=== PATIENT | female | born 1955 | race Caucasian/White ===

== ENCOUNTER 2025-06-02 13:32 | Observation (INO) ==
--- NOTE | 2025-06-02 13:56 | XRay Report ---
XR chest 1V portable CLINICAL HISTORY: Chest pain, nonspecific COMPARISON STUDY: None FINDINGS: There is mild cardiomegaly without pulmonary vascular congestion. No consolidation or pleur al effusion. No pneumothorax. IMPRESSION: No acute findings. ACT 112: Negative or not required by law. Electronically signed by: Franck Waldrop M.D. 06/02/2025 1:55 PM
[2025-06-02 14:15] LABS: Hematocrit (blood only) 33.2 % (37.0-47.0); Hemoglobin 11.1 g/dl (12.0-16.0); Immature Granulocytes # (auto) 0.02 K/uL (0.01-0.20); Immature Granulocytes % (auto) 0.2 %; Mean Corpuscular Hemoglobin 34.2 pg (25.0-34.0); Mean Corpuscular Volume 102.2 fL (80.0-100.0); Platelet Count 310 K/uL (130-400); RDW Standard Deviation 50.0 fL (36.4-46.3); Red Blood Count 3.25 M/uL (4.20-5.40); White Blood Count 10.73 K/ul (4.8-10.8)
--- NOTE | 2025-06-02 14:34 | Emergency Department Note ---
Impression & Plan Chest pain, Gastritis ED Provider Note Provider: Bull Mccurdy MD CHIEF COMPLAINT: Chest discomfort to back HISTORY OF PRESENT ILLNESS: Patient is a 69-year-old female presenting here today from the [facility] via ambulance. Patient states over the last 3 weeks or so she is been having some lower to mid chest discomfort radiating from the back around her ribs. Had x-rays and blood work in the outpatient setting through her doctors in [place] where she is from. No significant findings other than a mildly low hemoglobin of 11. Was at [facility] and reports while walking to be and experience a pounding heart but not fast heart rate. Did not syncopized but felt weak. Seen at [facility] and sent here for further evaluations. Had significant chest discomfort improved with 2 sprays of nitro. Minimal 1 out of 10 pain currently. Some mild headache also reported. No falls. No abdominal pain reported but she is tender in the right upper abdomen. PAST MEDICAL HISTORY: As noted above MEDICATIONS: Reviewed home medications SOCIAL HISTORY: , non-smoker PHYSICAL EXAM: GENERAL: alert and oriented in no acute distress on stretcher Head: normocephalic and atraumatic EYES: No injection, discharge or icterus. NECK: Trachea midline. ENT: Mucous membranes pink and moist. LUNGS: Airway patent. No retractions. Breath sounds clear with good air entry bilaterally. HEART: Regular rate and rhythm. No chest wall tenderness ABDOMEN: Soft mild right upper quadrant tenderness SKIN: Acyanotic, warm, dry, without rashes EXTREMITIES: Without swelling, tenderness or deformity NEUROLOGICAL: No focal deficits. No aphasia. No facial droop or slurred speech. Ambulatory. EK bpm normal sinus rhythm. No PVC or PAC. No acute ST segment elevation or depression with a QTc of 455. CONTINUOUS CARDIAC MONITORING: was ordered and showed a heart rate of 60s to 80s bpm in normal sinus rhythm Patient's laboratory studies and imaging reviewed. Differential includes Cardiac ischemia, aortic dissection, pulmonary embolism, pneumothorax, pneumonia, pericarditis, myocarditis, esophageal rupture, GERD, cholecystitis, pancreatitis, musculoskeletal, as well as other pathologies. IMPRESSION/MEDICAL DECISION MAKING: Patient with minimal pain on evaluation. EKG without STEMI. Did recently travel and thus will complete CT scans include underlying PE or mass although checks x-ray is reassuring per radiology report. Some tenderness in the mid right upper quadrant. Will complete abdominal CT with this. Could possibly be a smoldering cholecystitis situation. Also question again underlying angina/cardiac issue. No significant leukocytosis or severe anemia today. No trauma or neurological deficits and do not believe this is spinal pathology. Chemistries here without significant electrolyte abnormality or signs of renal dysfunction. No transaminitis or evidence of hepatitis or pancreatitis is noted. Troponin is normal at 5.2. Patient with complaint of some headache after the nitroglycerin and given Toradol and Reglan here to help with this per her request. CTA of the chest per radiology report without evidence of PE. They question a small right lower lobe area of pneumonitis. CT abdomen pelvis per radiology questions possibly some gastritis and gas as well as again some right lower lobe opacity. Discussed with the patient the findings. Patient does take meloxicam and is recently on a course of prednisone. Has been taking Pepcid but will add a PPI. Discussed with her options of staying for further cardiac evaluation exclusion versus outpatient follow-up. Certainly her discomfort this afternoon is concerning even with a negative initial troponin here. In shared decision making discussing risk benefits with her and her . She does not have close established follow-up as she is waiting an outpatient Lyme screen. Patient reports she is feeling improvement of her chest and rib region at this point. After discussion and in shared decision making we will bring in for observation to ensure continued improvement as well as trending of troponins. Will give a dose of Protonix. DIAGNOSIS: Chest pain, gastritis DISPOSITION: Hospitalist will evaluate Patient was agreeable with this plan. Past Med/Surg History Problem List (Updated 06/02/25 @ 17:12 by Bull Mccurdy M.D.) Gastritis (Acute) Chest pain (Acute) Social History Smoking Status: Never smoker Preferred Language: Hebrew Feels Safe at Home: Yes Home Meds Home Medications Medication Instructions Recorded Confirmed amitriptyline 50 mg tablet 50 mg PO HS 06/02/25 06/02/25 citalopram 40 mg tablet 40 mg PO DAILY 06/02/25 06/02/25 famotidine 20 mg tablet 20 mg PO DAILYBB 06/02/25 06/02/25 gabapentin 100 mg capsule 100 mg PO TID 06/02/25 06/02/25 lorazepam 0.5 mg tablet 0.5 mg PO DAILY PRN Anxiety 06/02/25 06/02/25 meloxicam 15 mg tablet 15 mg PO DAILY 06/02/25 06/02/25 propranolol 10 mg tablet 10 mg PO DAILY 06/02/25 06/02/25 sumatriptan succinate 100 mg tablet See Rx Instructions .Route 06/02/25 06/02/25 .COMPLEX PRN Migraines Results & Data (ED) Vital Signs Vital Signs - 24 hr 06/02/25 13:42 06/02/25 13:59 06/02/25 14:30 Pulse Rate 74 72 66 Pulse Rate [Apical] Pulse Rate from SpO2 Sensor 66 Respiratory Rate 14 16 18 Respiratory Effort / Characteristics Respiratory Depth Respiratory Pattern Blood Pressure 142/80 H 136/78 Blood Pressure [Right Arm] Blood Pressure Mean 100 89 Blood Pressure Mean [Right Arm] Pulse Oximetry 96 99 96 Oxygen Delivery Method Room Air Room Air Room Air Sepsis Recent Fever Within 48 Hours No Sepsis New/Unexplained Change in Mental Status No Sepsis Action Taken by Nursing No Action Required 06/02/25 16:00 Pulse Rate Pulse Rate [Apical] 68 Pulse Rate from SpO2 Sensor Respiratory Rate 18 Respiratory Effort / Characteristics Non-Labored Spontaneous Respiratory Depth Normal Respiratory Pattern Regular Blood Pressure Blood Pressure [Right Arm] 151/75 H Blood Pressure Mean Blood Pressure Mean [Right Arm] 100 Pulse Oximetry 98 Oxygen Delivery Method Room Air Sepsis Recent Fever Within 48 Hours Sepsis New/Unexplained Change in Mental Status Sepsis Action Taken by Nursing Laboratory Data 06/02/25 13:05 06/02/25 14:43 Lab Results 06/02/25 06/02/25 06/02/25 Range/Units 13:05 14:30 14:43 WBC 10.73 (4.8-10.8) K/ul RBC 3.25 L (4.20-5.40) M/uL Hgb 11.1 L (12.0-16.0) g/dl Hct 33.2 L (37.0-47.0) % MCV 102.2 H (80.0-100.0) fL MCH 34.2 H (25.0-34.0) pg MCHC 33.4 (32.0-36.0) g/dL RDW Std Deviation 50.0 H (36.4-46.3) fL RDW Coeff of Anjali 13.3 (11.5-14.5) % Plt Count 310 (130-400) K/uL MPV 10.4 (9.4-12.4) fL Immature Gran % (Auto) 0.2 % Neut % (Auto) 74.2 % Lymph % (Auto) 17.4 % Montgomery % (Auto) 6.8 % Eos % (Auto) 1.2 % Baso % (Auto) 0.2 % Neut # (Auto) 7.96 H (1.40-6.50) K/uL Lymph # (Auto) 1.87 (1.20-3.40) K/uL Montgomery # (Auto) 0.73 H (0.11-0.59) K/uL Eos # (Auto) 0.13 (0.00-0.50) K/uL Baso # (Auto) 0.02 (0.00-0.20) K/uL Immature Gran # (Auto) 0.02 (0.01-0.20) K/uL PT Cancelled 9.9 INR Cancelled 0.9 APTT Cancelled 23 PTT Ratio Cancelled 0.9 Sodium Cancelled 139 Potassium Cancelled 4.2 Chloride Cancelled 106 Carbon Dioxide Cancelled 29 Anion Gap Cancelled 4 BUN Cancelled 17 Creatinine Cancelled 0.79 Est Cr Clr Drug Dosing Cancelled 69.9 eGFR Cancelled 80.92 BUN/Creatinine Ratio Cancelled 21.5 H Glucose Cancelled 135 H Calcium Cancelled 9.1 Total Bilirubin Cancelled 0.2 AST Cancelled 13 ALT Cancelled 12 Alkaline Phosphatase Cancelled 38 Troponin I High Sens Cancelled 5.2 Total Protein Cancelled 6.0 Albumin Cancelled 3.4 Globulin Cancelled 2.6 Albumin/Globulin Ratio Cancelled 1.3 Lipase Cancelled 25 Administered Medications Discontinued Medications Pantoprazole Sodium 80 mg/ (Dextrose) 120 mls @ 480 mls/hr IV ONE STA Stop: 06/02/25 16:40 Last Admin: 06/02/25 16:54 Dose: 480 mls/hr Documented By: RY Famotidine (Pepcid 20mg Iv Push) 20 mg in 5 mls @ 2.5 mls/min IV NOW STA Stop: 06/02/25 16:27 Last Admin: 06/02/25 16:53 Dose: 2.5 mls/min Documented By: RY Ioversol (Optiray 320 125ml) 120 ml IV ONCE ONE Stop: 06/02/25 15:30 Last Admin: 06/02/25 15:29 Dose: 120 ml Documented By: NANCY Ketorolac Tromethamine (Ketorolac Tromethamine 15 Mg/Ml Vial) 15 mg IV NOW STA Stop: 06/02/25 15:45 Last Admin: 06/02/25 15:47 Dose: 15 mg Documented By: RY Metoclopramide HCl (Metoclopramide Hcl Inj 5 Mg/Ml 2 Ml Vial) 5 mg IV ONE ONE Stop: 06/02/25 15:46 Last Admin: 06/02/25 15:48 Dose: 5 mg Documented By: RY Imaging Data Radiologist's Impression: Chest X-Ray 06/02/25 13:44 XR chest 1V portable CLINICAL HISTORY: Chest pain, nonspecific COMPARISON STUDY: None FINDINGS: There is mild cardiomegaly without pulmonary vascular congestion. No consolidation or pleural effusion. No pneumothorax. IMPRESSION: No acute findings. ACT 112: Negative or not required by law. Electronically signed by: Franck Waldrop M.D. 06/02/2025 1:55 PM Abdomen/Pelvis CT 06/02/25 14:28 CT SCAN OF THE ABDOMEN AND PELVIS WITH IV CONTRAST CLINICAL HISTORY: Right-sided chest and abdominal pain. COMPARISON STUDY: None. TECHNIQUE: Following the IV administration of 120 cc of Optiray 320, CT scan of the abdomen and pelvis is performed from the lung bases to the proximal femora. Images are reviewed in the axial, sagittal, and coronal planes. IV contrast was administered without complication. A dose lowering technique was utilized adhering to the principles of ALARA. FINDINGS: Mild subpleural alveolar opacities within the right lower lobe are noted. There are minimal alveolar opacities within the left lung base. No pneumatosis, free air or portal venous gas is present. No hepatic lesions are identified. Several small bilateral renal lesions favor cysts. Spleen, adrenal glands and pancreas are unremarkable. There is mild wall thickening the distal stomach with possible minimal perigastric stranding is no extraluminal gas. There is no evidence for a bowel obstruction. There is no evidence for acute appendicitis. Note is made of extensive sigmoid diverticulosis without evidence for acute diverticulitis. Major vasculature is patent. There is no lymphadenopathy. IMPRESSION: 1. Mild wall thickening the distal stomach with possible minimal perigastric stranding. Although likely due to underdistention, the findings could represent gastritis. Abdominal gas. 2. Extensive sigmoid diverticulosis. No evidence for acute diverticulitis. 3. Subpleural right lower lobe opacities suggestive of a mild infectious process. ACT 112: Negative or not required by law. Electronically signed by: Juan Carlos Navarro M.D. 06/02/2025 4:06 PM Chest CTA 06/02/25 14:28 CT angio chest PE protocol CT DOSE: 1452.47 mGy.cm HISTORY: PE, CP to upper abd/back. TECHNIQUE: Multiple CTA images of the chest were obtained after the intravenous administration of 120 ml Optiray. Coronal and sagittal MIPS were obtained from the axial data set and were submitted for review. All measurements were obtained according to NASCET criteria. A dose lowering technique was utilized adhering to the principles of ALARA. COMPARISON STUDY: None FINDINGS: There is a small area of reticular nodular and patchy groundglass opacity lateral right lower lobe. No other pulmonary consolidation or pleural effusion. No pneumothorax. No enlarged adenopathy. No pericardial effusion. No thoracic aortic dissection or aneurysm. No pulmonary embolism. No acute osseous findings. IMPRESSION: 1. No pulmonary embolism seen. 2. Small area of reticular nodular and patchy groundglass opacity lateral right lower lobe has morphology consistent with small area of acute pneumonitis. ACT 112: Negative or not required by law. The above report was generated using voice recognition software. It may contain grammatical, syntax or spelling errors. Electronically signed by: Franck Waldrop M.D. 06/02/2025 3:57 PM Discharge Plan Visit Data Chief Complaint: Chest Pain ED Provider: Bull Mccurdy Discharge Problem: Chest pain, Gastritis Patient Disposition: Being Evaluated by Hospitalist Condition: Good Forms Stand Alone Forms: My [facility] Prescriptions Prescriptions: No Action citalopram 40 mg tablet 40 mg PO DAILY sumatriptan succinate 100 mg tablet See Rx Instructions .ROUTE .COMPLEX PRN (Reason: Migraines) Rx Instructions: TAKE 1 TABLET BY MOUTH NEEDED FOR UP TO 1 DOSE. MAY REPEAT IN 2 HOURS IF UNRESOLVED. DO NOT EXCEED 2 PER 24 HOURS. meloxicam 15 mg tablet 15 mg PO DAILY amitriptyline 50 mg tablet 50 mg PO HS propranolol 10 mg tablet 10 mg PO DAILY famotidine 20 mg tablet 20 mg PO DAILYBB lorazepam 0.5 mg tablet 0.5 mg PO DAILY PRN (Reason: Anxiety) gabapentin 100 mg capsule 100 mg PO TID Referrals Referrals: PCP,NO [Primary Care Provider] - Discharge Problem: Chest pain Qualifiers: Chest pain type: unspecified Qualified Code(s): R07.9 - Chest pain, unspecified Gastritis Qualifiers: Gastritis type: unspecified gastritis Chronicity: acute Gastritis bleeding: w ithout bleeding Qualified Code(s): K29.00 - Acute gastritis without bleeding
[2025-06-02 15:15] LABS: INR 0.9 (0.9-1.1); Partial Thromboplastin Time 23 Seconds (21-31); Prothrombin Time 9.9 Seconds (9.0-12.0)
[2025-06-02 15:15] LABS: Alanine Aminotransferase 12.0 U/L (7-52); Albumin Globulin Ratio 1.3 (0.9-2); Alkaline Phosphatase 38.0 U/L (34-104); Anion Gap 4.0 (3-11); Bilirubin,Total 0.2 mg/dl (0.2-1.0); Blood Urea Nitrogen 17.0 mg/dl (6-23); Calcium 9.1 mg/dl (8.6-10.3); Carbon Dioxide 29.0 mmol/L (21-32); Chloride 106.0 mmol/L (98-107); Creatinine Clr Calc Pharmacy 69.9 ml/min; Globulin 2.6 gm/dl (2.5-4.0); Glucose 135.0 mg/dl (70-99(Fasting)); Lipase 25.0 U/L (11-82); Potassium 4.2 mmol/L (3.5-5.1); Sodium 139.0 mmol/L (136-145); Total Protein 6.0 gm/dl (6.0-8.3)
[2025-06-02] MEDS: OPTIRAY 320 125ml IV ONE (15:29)
[2025-06-02] MEDS: KETOROLAC TROMETHAMINE 15 MG/ML VIAL IV STA (15:47)
[2025-06-02] MEDS: METOCLOPRAMIDE HCL INJ 5 MG/ML 2 ML VIAL IV ONE (15:48)
--- NOTE | 2025-06-02 15:58 | CT Scan Report ---
CT angio chest PE protocol CT DOSE: 1452.47 mGy.cm HISTORY: PE, CP to upper abd/back. TECHNIQUE: Multiple CTA images of the chest were obtained after the intravenous administration of 120 ml Optiray. Coronal and sagittal MIPS were obtained from the axial data set and were submitted for review. All measurements were obtained according to NASCET criteria. A dose lowering technique was u tilized adhering to the principles of ALARA. COMPARISON STUDY: None FINDINGS: There is a small area of reticular nodular and patchy groundglass opacity lateral right low er lobe. No other pulmonary consolidation or pleural effusion. No pneumothorax. No enlarged adenopath y. No pericardial effusion. No thoracic aortic dissection or aneurysm. No pulmonary embolism. No acut e osseous findings. IMPRESSION: 1. No pulmonary embolism seen. 2. Small area of reticular nodular and patchy groundglass opacity lateral right lower lobe has morpho logy consistent with small area of acute pneumonitis. ACT 112: Negative or not required by law. The above report was generated using voice recognition software. It may contain grammatical, syntax o r spelling errors. Electronically signed by: Franck Waldrop M.D. 06/02/2025 3:57 PM
--- NOTE | 2025-06-02 16:08 | CT Scan Report ---
CT SCAN OF THE ABDOMEN AND PELVIS WITH IV CONTRAST CLINICAL HISTORY: Right-sided chest and abdominal pain. COMPARISON STUDY: None. TECHNIQUE: Following the IV administration of 120 cc of Optiray 320, CT scan of the abdomen and pelv is is performed from the lung bases to the proximal femora. Images are reviewed in the axial, sagitta l, and coronal planes. IV contrast was administered without complication. A dose lowering technique w as utilized adhering to the principles of ALARA. FINDINGS: Mild subpleural alveolar opacities within the right lower lobe are noted. There are minimal alveolar opacities within the left lung base. No pneumatosis, free air or portal venous gas is prese nt. No hepatic lesions are identified. Several small bilateral renal lesions favor cysts. Spleen, adr enal glands and pancreas are unremarkable. There is mild wall thickening the distal stomach with poss ible minimal perigastric stranding is no extraluminal gas. There is no evidence for a bowel obstructi on. There is no evidence for acute appendicitis. Note is made of extensive sigmoid diverticulosis wit hout evidence for acute diverticulitis. Major vasculature is patent. There is no lymphadenopathy. IMPRESSION: 1. Mild wall thickening the distal stomach with possible minimal perigastric stranding. Although like ly due to underdistention, the findings could represent gastritis. Abdominal gas. 2. Extensive sigmoid diverticulosis. No evidence for acute diverticulitis. 3. Subpleural right lower lobe opacities suggestive of a mild infectious process. ACT 112: Negative or not required by law. Electronically signed by: Juan Carlos Navarro M.D. 06/02/2025 4:06 PM
[2025-06-02] MEDS: FAMOTIDINE 20MG IV PUSH 20 MG/5 ML SYR IV STA (16:53)
--- NOTE | 2025-06-02 16:53 | History & Physical Report ---
<Statement entered by Josep Rabago, - 06/02/25 19:00> patient seen and examined at bedside SHe has a multitude of non specific complaints She is unable to even state what is bothering her the most She does endorse PONCE. cardiac enzymes unrevealing WIll order stress test in AM Date of Service June 02, 2025 Assessment & Plan (1) Chest pain: (2) PONCE (dyspnea on exertion): (3) Palpitations: (4) Abnormal computed tomography angiography (CTA): (5) Macrocytic anemia: Plan Pt is a 69y/o F from [place], [place] with PMHx significant for anxiety/depression, migraines and borderline hypotension who presented to the ED via EMS with complaints of sudden-onset chest pain and PONCE while visiting the [facility]. Upon further questioning, pt admits to intermittent chest pain (primarily under both breasts with radiation into the substernal region) and PONCE for the past several weeks with no known underlying cardiac history. 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 Pt recently completed a prednisone taper course by PCP for these various sx w/o any significant improvement. No OP records available to access --> HIM consult placed to obtain PCP records. Pt f/w Dr. Rodrigo Machuca of [facility] in [place], [place]. #Chest pain, PONCE --> intermittent and ongoing x several wks #Palpitations Trop x 2 neg but will follow trend overnight EKG: NSR, no acute ST changes to suggest ACS Check resting TTE Continue telemetry monitoring Chest pain improved s/p 324mg ASA, SL nitro x 2 en route to ED (previously 1010 pain now down to 1-11/22) Will keep NPO at [place] for stress testing in AM Will hold on cards consult pending results of stress testing given neg trop x 2, unremarkable EKG CTAP: possible gastritis -Could be c/t pain but unclear at this time -S/p IV Pepcid, IV Protonix in ED -Will keep on IV Protonix BID for now -Hold home meloxicam (has been taking this for generalized myalgias), avoid all NSAIDs -? consider GI/EGD eval if cards w/u neg if pt's sx not improving Check AM lipid panel, Hgb A1c Additional nonspecific complaints, as mentioned above -Will check tickborne panel, orthostatics -? 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 Rabago. Please see addendum. I spent a total of 66 minutes coordinating, documenting, and providing care for this patient excluding time spent in the performance of separately billed services or time spent by another provider/QHP. This included personally reviewing all current laboratories and imaging studies, medical reconciliation, outpatient chart review and discussion with specialists. This chart was completed in part utilizing Speech Voice Recognition Software. Grammatical errors, random word insertions, pronoun errors, and incomplete sentences are an occasional consequence of this system due to software limitations, ambient noise, and hardware issues. Any formal questions or concerns about the content, text, or information contained within the body of this dictation should be directly addressed to the provider for clarification. History of Present Illness Chief Complaint: Chest pain, PONCE Primary Care Provider: NO PCP Pt is a 69y/o F from [place], [place] with PMHx significant for anxiety/depression and migraines who presented to the ED via EMS with complaints of chest pain and PONCE. History obtained from the pt, pt's at bedside, discussion with ED provider and associated chart review. Pt and her are in town visiting the [facility]. Currently residing in [place], [place]. Follows with PCP in [place], Dr. Rodrigo Machuca, through [facility]. Pt admits to feeling intermittent chest pain for several weeks. Describes it as a sharp, stabbing pain under both breasts with radiation into the substernal region at times. Occurs both at rest and with exertion. No identified precipitating factors. Has recently been experiencing progressive PONCE as well. Today at the [facility], she suddenly developed sharp chest pain under both breasts and SOB while walking which prompted her to go over to the EMS tent onsite before subsequently being brought to the ED for further evaluation. She also became diaphoretic during this episode. S/p ASA 324mg and SL nitro x 2 en route to the ED with significant improvement in her chest pain. Mentions her chest pain went from a 10/10 to a 1-/10. And she states her SOB has completely resolved. Pt also mentions experiencing several other various symptoms over the past several weeks including generalized myalgias, intermittent chills but no recorded fevers, occasional lightheadedness both at rest and with exertion, intermittent upper back pain and fatigue. No recent known tick or insect bites. No recent sick contacts or hospitalizations. Denies any cough, sinus congestion, abdominal pain or urinary/bowel habit changes. No recent trauma or injuries. States her PCP had ordered some labs to further evaluate these symptoms but she hasn't heard back regarding any results. No smoking history. Rare alcohol use. No recreational drug use. Home Medications Medication Instructions Recorded Confirmed Type amitriptyline 50 mg tablet 50 mg PO HS 06/02/25 06/02/25 History calcium 600 mg capsule 600 mg PO DAILY 06/02/25 06/02/25 History cholecalciferol (vitamin D3) 25 25 mcg PO DAILY 06/02/25 06/02/25 History mcg (1,000 unit) tablet (Vitamin D3) citalopram 40 mg tablet 40 mg PO DAILY 06/02/25 06/02/25 History famotidine 20 mg tablet 20 mg PO DAILYBB 06/02/25 06/02/25 History lorazepam 0.5 mg tablet 0.5 mg PO DAILY PRN Anxiety 06/02/25 06/02/25 History meloxicam 15 mg tablet 15 mg PO DAILY 06/02/25 06/02/25 History propranolol 10 mg tablet 10 mg PO DAILY 06/02/25 06/02/25 History sumatriptan succinate 100 mg tablet See Rx Instructions .Route 06/02/25 06/02/25 History .COMPLEX PRN Migraines Past Med/Surg History Problem List (Updated 06/02/25 @ 18:39 by Pao Rod PA-C) Macrocytic anemia Abnormal computed tomography angiography (CTA) Palpitations PONCE (dyspnea on exertion) Gastritis (Acute) Chest pain (Acute) Social History Smoking Status: Never smoker Hx Alcohol Use: No Hx Substance Use: No Preferred Language: Vietnamese Communication Ability: Effective Clearing Inspector Required: No Beliefs That Will Affect Care: None Current Living Situation: Spouse Other Information That Helps Us Care for You: No Feels Safe at Home: Yes Safety Concerns: Feels Safe At This Time Assistive Devices: Glasses Review of Systems Review of Systems: At least ten systems reviewed and negative, except as noted in the HPI. Physical Exam Physical Exam: General: NAD, sitting down on floor, A&Ox3, anxious affect, covering face with bed sheet, at bedside HEENT: Normocephalic, atraumatic, oropharynx normal Respiratory: Normal respiratory effort, CTAB Cardiovascular: RRR, normal peripheral pulses, no BLE edema. Vessels: No JVD. Abdomen/GI: Normal bowel sounds, soft, nontender to palpation in all quadrants. Extremities/Musculoskeletal: No cyanosis or clubbing, extremities motor strength intact, moves all extremities. Neurologic: No overt focal deficits, CN's II-XI not formally tested but appear grossly intact bilaterally. Skin: No rashes, normal color, warm/dry. Results & Data Results & Data Vital Signs (Past 12 Hours) Vital Signs Pulse Pulse Resp BP BP Pulse Ox O2 Del Method 06/02/25 16:00 68 18 151/75 H 98 Room Air 06/02/25 14:30 66 18 136/78 96 Room Air 06/02/25 13:59 72 16 99 Room Air 06/02/25 13:42 74 14 142/80 H 96 Room Air Laboratory Results Short CBC 06/02/25 Range/Units 13:05 WBC 10.73 (4.8-10.8) K/ul Hgb 11.1 L (12.0-16.0) g/dl Hct 33.2 L (37.0-47.0) % Plt Count 310 (130-400) K/uL BMP 06/02/25 06/02/25 13:05 14:43 Sodium Cancelled 139 Potassium Cancelled 4.2 Chloride Cancelled 106 Carbon Dioxide Cancelled 29 BUN Cancelled 17 Creatinine Cancelled 0.79 Glucose Cancelled 135 H Calcium Cancelled 9.1 Liver Function 06/02/25 06/02/25 Range/Units 13:05 14:43 Total Bilirubin Cancelled 0.2 AST Cancelled 13 ALT Cancelled 12 Alkaline Phosphatase Cancelled 38 Albumin Cancelled 3.4 Diagnostic Findings Chest X-Ray 06/02/25 13:44 XR chest 1V portable CLINICAL HISTORY: Chest pain, nonspecific COMPARISON STUDY: None FINDINGS: There is mild cardiomegaly without pulmonary vascular congestion. No consolidation or pleural effusion. No pneumothorax. IMPRESSION: No acute findings. ACT 112: Negative or not required by law. Electronically signed by: Franck Waldrop M.D. 06/02/2025 1:55 PM Abdomen/Pelvis CT 06/02/25 14:28 CT SCAN OF THE ABDOMEN AND PELVIS WITH IV CONTRAST CLINICAL HISTORY: Right-sided chest and abdominal pain. COMPARISON STUDY: None. TECHNIQUE: Following the IV administration of 120 cc of Optiray 320, CT scan of the abdomen and pelvis is performed from the lung bases to the proximal femora. Images are reviewed in the axial, sagittal, and coronal planes. IV contrast was administered without complication. A dose lowering technique was utilized adhering to the principles of ALARA. FINDINGS: Mild subpleural alveolar opacities within the right lower lobe are noted. There are minimal alveolar opacities within the left lung base. No pneumatosis, free air or portal venous gas is present. No hepatic lesions are identified. Several small bilateral renal lesions favor cysts. Spleen, adrenal glands and pancreas are unremarkable. There is mild wall thickening the distal stomach with possible minimal perigastric stranding is no extraluminal gas. There is no evidence for a bowel obstruction. There is no evidence for acute appendicitis. Note is made of extensive sigmoid diverticulosis without evidence for acute diverticulitis. Major vasculature is patent. There is no lymphadenopathy. IMPRESSION: 1. Mild wall thickening the distal stomach with possible minimal perigastric stranding. Although likely due to underdistention, the findings could represent gastritis. Abdominal gas. 2. Extensive sigmoid diverticulosis. No evidence for acute diverticulitis. 3. Subpleural right lower lobe opacities suggestive of a mild infectious process. ACT 112: Negative or not required by law. Electronically signed by: Juan Carlos Navarro M.D. 06/02/2025 4:06 PM Chest CTA 06/02/25 14:28 CT angio chest PE protocol CT DOSE: 1452.47 mGy.cm HISTORY: PE, CP to upper abd/back. TECHNIQUE: Multiple CTA images of the chest were obtained after the intravenous administration of 120 ml Optiray. Coronal and sagittal MIPS were obtained from the axial data set and were submitted for review. All measurements were obtained according to NASCET criteria. A dose lowering technique was utilized adhering to the principles of ALARA. COMPARISON STUDY: None FINDINGS: There is a small area of reticular nodular and patchy groundglass opacity lateral right lower lobe. No other pulmonary consolidation or pleural effusion. No pneumothorax. No enlarged adenopathy. No pericardial effusion. No thoracic aortic dissection or aneurysm. No pulmonary embolism. No acute osseous findings. IMPRESSION: 1. No pulmonary embolism seen. 2. Small area of reticular nodular and patchy groundglass opacity lateral right lower lobe has morphology consistent with small area of acute pneumonitis. ACT 112: Negative or not required by law. The above report was generated using voice recognition software. It may contain grammatical, syntax or spelling errors. Electronically signed by: Franck Waldrop M.D. 06/02/2025 3:57 PM Medications Administered Discontinued Medications Pantoprazole Sodium 80 mg/ (Dextrose) 120 mls @ 480 mls/hr IV ONE STA Stop: 06/02/25 16:40 Last Admin: 06/02/25 16:54 Dose: 480 mls/hr Documented By: RY Famotidine (Pepcid 20mg Iv Push) 20 mg in 5 mls @ 2.5 mls/min IV NOW STA Stop: 06/02/25 16:27 Last Admin: 06/02/25 16:53 Dose: 2.5 mls/min Documented By: RY Ioversol (Optiray 320 125ml) 120 ml IV ONCE ONE Stop: 06/02/25 15:30 Last Admin: 06/02/25 15:29 Dose: 120 ml Documented By: NANCY Ketorolac Tromethamine (Ketorolac Tromethamine 15 Mg/Ml Vial) 15 mg IV NOW STA Stop: 06/02/25 15:45 Last Admin: 06/02/25 15:47 Dose: 15 mg Documented By: RY Metoclopramide HCl (Metoclopramide Hcl Inj 5 Mg/Ml 2 Ml Vial) 5 mg IV ONE ONE Stop: 06/02/25 15:46 Last Admin: 06/02/25 15:48 Dose: 5 mg Documented By: RY Code Status & VTE Plan Code Status FULL CODE (1) Chest pain Chest pain type: unspecified Qualified Code(s): R07.9 - Chest pain, unspecified
[2025-06-02] MEDS ORDERED: ONDANSETRON INJ 2 MG/ML 2 ML VIAL IV PRN ×2 (17:00→17:49)
[2025-06-02] MEDS ORDERED: MAGNESIUM HYDROXIDE SUSP 30 ML UDC PO PRN (17:49)
[2025-06-02] MEDS ORDERED: POLYETHYLENE (MIRALAX) 17 GM PACK PO PRN (17:49)
[2025-06-02] MEDS ORDERED: LORazepam 0.5 MG TAB PO PRN (18:05)
[2025-06-02 20:02] VITALS: RESP 18
[2025-06-02 20:04] LABS: Folate (Folic Acid),Ser orPlas 9.27 ng/ml (>5.38)
[2025-06-02 20:05] LABS: Vitamin B12 168.0 pg/ml (180-914)
[2025-06-02] MEDS: AMITRIPTYLINE HCL 50 MG TAB PO SCH (21:13)
[2025-06-02] MEDS: PANTOprazole 40 MG/10 ML SYR IV SCH (21:13)
[2025-06-03 02:54] VITALS: O2SAT 96
[2025-06-03 07:44] LABS: Hematocrit (blood only) 31.9 % (37.0-47.0); Hemoglobin 10.7 g/dl (12.0-16.0); Mean Corpuscular Hemoglobin 34.3 pg (25.0-34.0); Mean Corpuscular Volume 102.2 fL (80.0-100.0); Platelet Count 263 K/uL (130-400); RDW Standard Deviation 51.0 fL (36.4-46.3); Red Blood Count 3.12 M/uL (4.20-5.40); White Blood Count 6.50 K/ul (4.8-10.8)
[2025-06-03 07:47] VITALS: BP 118/66; TEMP 98.1
[2025-06-03 07:54] LABS: Hemoglobin A1C 5.7 % (4.5-5.6)
[2025-06-03 08:05] LABS: Anion Gap 4.0 (3-11); Blood Urea Nitrogen 16.0 mg/dl (6-23); Calcium 9.0 mg/dl (8.6-10.3); Carbon Dioxide 31.0 mmol/L (21-32); Chloride 103.0 mmol/L (98-107); Cholesterol 180.0 mg/dl (0-200); Creatinine Clr Calc Pharmacy 73.5 ml/min; Glucose 101.0 mg/dl (70-99(Fasting)); HDL Cholesterol 44.0 mg/dl; Potassium 4.2 mmol/L (3.5-5.1); Sodium 138.0 mmol/L (136-145); Triglycerides 152.0 mg/dl (0-150)
[2025-06-03] MEDS: CHOLECALCIFEROL 25 MCG (1000 UNITS) TAB PO SCH (08:46)
[2025-06-03] MEDS: ACETAMINOPHEN 325 MG TAB PO PRN (08:46)
[2025-06-03] MEDS: PROPRANOLOL HCL 10 MG TAB PO SCH (08:46)
[2025-06-03] MEDS: CITALOPRAM 40 MG TAB PO SCH (08:46)
[2025-06-03 11:56] LABS: Influenza A virus by PCR Negative (Neg); Influenza B virus by PCR Negative (Neg); SARS CoV2 RNA(COVID-19) Ceph NEGATIVE (Negative)
[2025-06-03] MEDS: DOBUTamine HCL 12.5 MG/ML 20 ML VIAL IV ONE (12:11)
[2025-06-03] MEDS: ATROPINE SULFATE 0.1 MG/ML 10ML SYR IV ONE (12:11)
[2025-06-03] MEDS: METOPROLOL TARTRATE 1 MG/ML VIAL IV ONE (12:12)
[2025-06-03] MEDS ORDERED: CYANOCOBALAMIN (B-12) 500 MCG TABLET PO SCH (13:15)
--- NOTE | 2025-06-03 14:23 | Communication Note ---
Date of Service: June 03, 2025 By CMS guidelines, a determination that the admission or continued stay is not medically necessary has been made by a member of the UR committee and a phy sician for this hospital stay, therefore a Code 44 will be completed and the Inpatient admission will be changed to outpatient.
--- NOTE | 2025-06-03 14:27 | Hospitalist Progress Note ---
Date of Service June 03, 2025 Assessment & Plan (1) Chest pain: (2) PONCE (dyspnea on exertion): (3) Palpitations: (4) Abnormal computed tomography angiography (CTA): (5) Macrocytic anemia: Plan Pt is a 69y/o F from [place], [place] with PMHx significant for anxiety/depression , migraines and borderline hypotension who presented to the ED via EMS with complaints of sudden-onset chest pain and PONCE while visiting the [facility]. Upon further questioning, pt admits to intermittent chest pain (primarily under both breasts with radiation into the substernal region) and PONCE for the past several weeks with no known underlying cardiac history. 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 Pt recently completed a prednisone taper course by PCP for these various sx w/o any significant improvement. No OP records available to access --> HIM consult placed to obtain PCP records. Pt f/w Dr. Rodrigo Machuca of [facility] in [place], [place]. #Chest pain, Dyspnea on exertion, Acute coronary syndrome ruled out, Acute pulmonary embolism ruled out #Palpitations #Fatigue Trop x 2 neg but will follow trend overnight EKG: NSR, no acute ST changes to suggest ACS Check resting TTE Continue telemetry monitoring Chest pain improved s/p 324mg ASA, SL nitro x 2 en route to ED (previously 10/10 pain now down to 1-2/10) Will keep NPO at [place] for stress testing in AM Will hold on cards consult pending results of stress testing given neg trop x 2, unremarkable EKG CTAP: possible gastritis -Could be c/t pain but unclear at this time -S/p IV Pepcid, IV Protonix in ED -Will keep on IV Protonix BID for now -Hold home meloxicam (has been taking this for generalized myalgias), avoid all NSAIDs -? consider GI/EGD eval if cards w/u neg if pt's sx not improving Check AM lipid panel, Hgb A1c Additional nonspecific complaints, as mentioned above -Will check tickborne panel, orthostatics -? rheumatologic w/u --> IP vs OP depending on initial w/u results 8/22 Status post dobutamine stress echocardiogram: Normal pharmacologic stress echocardiogram. No echocardiographic or EKG evidence of myocardial ischemia having achieved heart rate adequate for diagnostic purposes. The heart response to pharmacologic stress was normal. The blood pressure response to pharmacologic stress was normal. No symptoms suggestive angina reinduced. TSH, vitamin D, tickborne panel: pending, please follow-up results prescribed with doxycycline course for pneumonia as noted below A1c 5.7--> further monitoring and management as an outpatient #Right lower lobe pneumonia Chest CTA: small area of reticular nodular and patchy groundglass opacity lateral right lower lobe has morphology c/w small area of acute pneumonitis Pt w/o any additional pulm complaints except for intermittent PONCE WBC WNL Will check procal No s/sx of sepsis on admission Low suspicion for bacterial infection at this time but will also check blood cx since pt experiencing intermittent chills (but no fevers 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 No pulmonary embolism seen. 2. Small area of reticular nodular and patchy groundglass opacity lateral right lower lobe has morphology consistent with small area of acute pneumonitis. negative for RSV, influenza, COVID blood cultures: Pending, please follow-up Augmentin plus doxycycline x 1 week ordered Probiotics ordered #Macrocytic anemia Vitamin B12 Deficiency Hemoglobin 11.1--> 10.7 Vitamin B12 168 --> Vitamin b12 1000mcg ordered Folate: normal Iron: pending #H/o migraines Continue home regimen #Anxiety/depression Continue home regimen DVT Prophylaxis: SCDs/TEDs for now Disposition: Admit to med/telemetry Admission and Anticipated Discharge Date Admission Date: June 02, 2025 Subjective Seen resting in bed, sitting up, comfortable, in good spirits Patient's at the bedside visiting States she feels much better today Chest pain, back pain resolved Denies shortness of breath, cough, fevers or chills Denies dizziness, palpitations No abdominal pain, nausea or vomiting States she has been ambulating in the room with no problems States she would like to be discharged today and follow-up with her PCP next week Review of Systems Review of Systems: all noted and negative except for above Physical Exam Physical Exam: General- oriented x 3, not in distress, speaks in sentences with no effort or accessory muscle use Eyes- anicteric Neck- no JVD Lungs- clear breath sounds bilaterally, no rales/wheezes Heart- normal rate, regular rhythm; no murmurs Abdomen- normal bowel sounds, nondistended, soft, nontender Extremities- no pretibial edema, no calf tenderness Neuro- alert, oriented x 3; no gross focal neurologic deficits Skin- warm & dry Results & Data Results & Data Vital Signs (Past 12 Hours) Vital Signs Temp Pulse Pulse Resp BP Pulse Ox O2 Del Method 06/03/25 11:00 58 L 06/03/25 07:46 36.7 C 63 18 118/66 96 Room Air 06/03/25 02:30 36.8 C 64 18 99/59 L 96 Room Air all noted and reviewed including below (1) Chest pain Chest pain type: unspecified Qualified Code(s): R07.9 - Chest pain, unspecified
[2025-06-03 14:41] LABS: Iron 105.0 mcg/dl (35-150); Transferrin 249.0 mg/dl (200-360)
--- NOTE | 2025-06-03 14:41 | Discharge Summary ---
Discharge Summary Date of Service June 03, 2025 Principal Dx & Hospital Course #1 = Principal Diagnosis (1) Chest pain: (2) PONCE (dyspnea on exertion): (3) Palpitations: (4) Abnormal computed tomography angiography (CTA): (5) Macrocytic anemia: Plan Pt is a 69y/o F from [place], [place] with PMHx significant for anxiety/depression, migraines and borderline hypotension who presented to the ED via EMS with complaints of sudden-onset chest pain and PONCE while visiting the [facility]. Upon further questioning, pt admits to intermittent chest pain (primarily under both breasts with radiation into the substernal region) and PNOCE for the past several weeks with no known underlying cardiac history. Pt also c/o several other various symptoms over the past several weeks including fatigue, generalized myalgias, generalized weakness, intermittent chills but no recorded fevers [employer], palpitations and occasional lightheadedness (both at rest and with exertion). Pt recently completed a prednisone taper course by PCP for these various sx w/o any significant improvement. No OP records available to access --> HIM consult placed to obtain PCP records. Pt f/w Dr. Rodrigo Machuca of [facility] in [place], [place]. #Chest pain, Dyspnea on exertion, Acute coronary syndrome ruled out, Acute pulmonary embolism ruled out #Palpitations #Fatigue Trop x 2 neg but will follow trend overnight EKG: NSR, no acute ST changes to suggest ACS Check resting TTE Continue telemetry monitoring Chest pain improved s/p 324mg ASA, SL nitro x 2 en route to ED (previously 10/10 pain now down to 1-/) Will keep NPO at MN for stress testing in AM Will hold on cards consult pending results of stress testing given neg trop x 2, unremarkable EKG CTAP: possible gastritis -Could be c/t pain but unclear at this time -S/p IV Pepcid, IV Protonix in ED -Will keep on IV Protonix BID for now -Hold home meloxicam (has been taking this for generalized myalgias), avoid all NSAIDs -? consider GI/EGD eval if cards w/u neg if pt's sx not improving Check AM lipid panel, Hgb A1c Additional nonspecific complaints, as mentioned above -Will check tickborne panel, orthostatics -? rheumatologic w/u --> IP vs OP depending on initial w/u results 06/03 Status post dobutamine stress echocardiogram: Normal pharmacologic stress echocardiogram. No echocardiographic or EKG evidence of myocardial ischemia having achieved heart rate adequate for diagnostic purposes. The heart response to pharmacologic stress was normal. The blood pressure response to pharmacologic stress was normal. No symptoms suggestive angina reinduced. tickborne panel: pending, please follow-up results prescribed with doxycycline course for pneumonia as noted below A1c 5.7--> further monitoring and management as an outpatient VIt D --> please supplement #Gastritis CT abdomen and pelvis: 1. Mild wall thickening the distal stomach with possible minimal perigastric stranding. Although likely due to underdistention, the findings could represent gastritis. Abdominal gas. 2. Extensive sigmoid diverticulosis. No evidence for acute diverticulitis. 3. Subpleural right lower lobe opacities suggestive of a mild infectious process. Stop meloxicam Transition from famotidine to Protonix Further workup and management as an outpatient #Right lower lobe pneumonia Chest CTA: small area of reticular nodular and patchy groundglass opacity lateral right lower lobe has morphology c/w small area of acute pneumonitis Pt w/o any additional pulm complaints except for intermittent PONCE WBC WNL Will check procal No s/sx of sepsis on admission Low suspicion for bacterial infection at this time but will also check blood cx since pt experiencing intermittent chills (but no fevers [employer]), fatigue, myalgias Will monitor off ABX for the time being CT angiogram chest: 1. No pulmonary embolism seen. 2. Small area of reticular nodular and patchy groundglass opacity lateral right lower lobe has morphology consistent with small area of acute pneumonitis. negative for RSV, influenza, COVID blood cultures: Negative Augmentin plus doxycycline x 1 week ordered Probiotics ordered #Macrocytic anemia Vitamin B12 Deficiency Hemoglobin 11.1--> 10.7 Vitamin B12 168 --> Vitamin b12 1000mcg ordered Folate: normal Iron: 105 #H/o migraines Continue home regimen #Anxiety/depression Continue home regimen DVT Prophylaxis: SCDs/TEDs for now Disposition: Admit to med/telemetry Notes For Next Care Provider Medication Changes From Visit Augmentin twice daily timesx 7 days Doxycycline twice daily x 10 days Floranex probiotic x 30 days Vitamin B12 1000 mcg daily x 30 days Admission HPI Per Admitting Provider Pt is a 69y/o F from [place], [place] with PMHx significant for anxiety/depression and migraines who presented to the ED via EMS with complaints of chest pain and PONCE. History obtained from the pt, pt's at bedside, discussion with ED provider and associated chart review. Pt and her are in town visiting the [facility]. Currently residing in [place], [place]. Follows with PCP in [place], Dr. Rodrigo Machuca, through [facility]. Pt admits to feeling intermittent chest pain for several weeks. Describes it as a sharp, stabbing pain under both breasts with radiation into the substernal region at times. Occurs both at rest and with exertion. No identified precipitating factors. Has recently been experiencing progressive PONCE as well. Today at the [facility], she suddenly developed sharp chest pain under both breasts and SOB while walking which prompted her to go over to the EMS tent onsite before subsequently being brought to the ED for further evaluation. She also became diaphoretic during this episode. S/p ASA 324mg and SL nitro x 2 en route to the ED with significant improvement in her chest pain. Mentions her chest pain went from a 10/10 to a 1-2/10. And she states her SOB has completely resolved. Pt also mentions experiencing several other various symptoms over the past several weeks including generalized myalgias, intermittent chills but no recorded fevers, occasional lightheadedness both at rest and with exertion, intermittent upper back pain and fatigue. No recent known tick or insect bites. No recent sick contacts or hospitalizations. Denies any cough, sinus congestion, abdominal pain or urinary/bowel habit changes. No recent trauma or injuries. States her PCP had ordered some labs to further evaluate these symptoms but she hasn't heard back regarding any results. No smoking history. Rare alcohol use. No recreational drug use. Admission Exam Per Admitting Provider General: NAD, sitting down on floor, A&Ox3, anxious affect, covering face with bed sheet, at bedside HEENT: Normocephalic, atraumatic, oropharynx normal Respiratory: Normal respiratory effort, CTAB Cardiovascular: RRR, normal peripheral pulses, no BLE edema. Vessels: No JVD. Abdomen/GI: Normal bowel sounds, soft, nontender to palpation in all quadrants. Extremities/Musculoskeletal: No cyanosis or clubbing, extremities motor strength intact, moves all extremities. Neurologic: No overt focal deficits, CN's II-XI not formally tested but appear grossly intact bilaterally. Skin: No rashes, normal color, warm/dry. Discharge Exam General- oriented x 3, not in distress, speaks in sentences with no effort or accessory muscle use Eyes- anicteric Neck- no JVD Lungs- clear breath sounds bilaterally, no rales/wheezes Heart- normal rate, regular rhythm; no murmurs Abdomen- normal bowel sounds, nondistended, soft, nontender Extremities- no pretibial edema, no calf tenderness Neuro- alert, oriented x 3; no gross focal neurologic deficits Skin- warm & dry Updated Medication List Medication Instructions Recorded Confirmed Type amitriptyline 50 mg tablet 50 mg PO HS 06/02/25 06/02/25 History calcium 600 mg capsule 600 mg PO DAILY 06/02/25 06/02/25 History cholecalciferol (vitamin D3) 25 25 mcg PO DAILY 06/02/25 06/02/25 History mcg (1,000 unit) tablet (Vitamin D3) citalopram 40 mg tablet 40 mg PO DAILY 06/02/25 06/02/25 History lorazepam 0.5 mg tablet 0.5 mg PO DAILY PRN Anxiety 06/02/25 06/02/25 History propranolol 10 mg tablet 10 mg PO DAILY 06/02/25 06/02/25 History sumatriptan succinate 100 mg tablet See Rx Instructions .Route 06/02/25 06/02/25 History .COMPLEX PRN Migraines Lactobacillus acidoph-L.bulgaricus 1 tab PO DAILY #30 tabs 06/03/25 Rx 1 million cell tablet (Floranex) amoxicillin 875 mg-potassium 1 tab PO BID 7 days #14 tabs 06/03/25 Rx clavulanate 125 mg tablet cyanocobalamin (vitamin B-12) 500 1,000 mcg (2 x 500 mcg) PO QAM 30 06/03/25 Rx mcg tablet days #60 tabs doxycycline monohydrate 100 mg 100 mg PO BID 10 days #20 caps 06/03/25 Rx capsule pantoprazole 40 mg tablet,delayed 40 mg PO DAILY 30 days #30 tabs 06/03/25 Rx release (Protonix) Hospital Stay Data Consultations 06/02/25 16:31 ED Decision to Admit Stat 06/02/25 18:04 HIM [Consult Health Information Management] Routine Diagnostic Imagining Performed Laboratory Results WBC 6.50 K/ul (4.8-10.8) 06/03/25 07:18 RBC 3.12 M/uL (4.20-5.40) L 06/03/25 07:18 Hgb 10.7 g/dl (12.0-16.0) L 06/03/25 07:18 Hct 31.9 % (37.0-47.0) L 06/03/25 07:18 MCV 102.2 fL (80.0-100.0) H 06/03/25 07:18 MCH 34.3 pg (25.0-34.0) H 06/03/25 07:18 MCHC 33.5 g/dL (32.0-36.0) 06/03/25 07:18 RDW Std Deviation 51.0 fL (36.4-46.3) H 06/03/25 07:18 RDW Coeff of Anjali 13.7 % (11.5-14.5) 06/03/25 07:18 Plt Count 263 K/uL (130-400) 06/03/25 07:18 MPV 9.4 fL (9.4-12.4) 06/03/25 07:18 Immature Gran % (Auto) 0.2 % 06/02/25 13:05 Neut % (Auto) 74.2 % 06/02/25 13:05 Lymph % (Auto) 17.4 % 06/02/25 13:05 Nance % (Auto) 6.8 % 06/02/25 13:05 Eos % (Auto) 1.2 % 06/02/25 13:05 Baso % (Auto) 0.2 % 06/02/25 13:05 Neut # (Auto) 7.96 K/uL (1.40-6.50) H 06/02/25 13:05 Lymph # (Auto) 1.87 K/uL (1.20-3.40) 06/02/25 13:05 Nance # (Auto) 0.73 K/uL (0.11-0.59) H 06/02/25 13:05 Eos # (Auto) 0.13 K/uL (0.00-0.50) 06/02/25 13:05 Baso # (Auto) 0.02 K/uL (0.00-0.20) 06/02/25 13:05 Immature Gran # (Auto) 0.02 K/uL (0.01-0.20) 06/02/25 13:05 PT 9.9 Seconds (9.0-12.0) 06/02/25 14:30 INR 0.9 (0.9-1.1) 06/02/25 14:30 APTT 23 Seconds (21-31) 06/02/25 14:30 PTT Ratio 0.9 06/02/25 14:30 Sodium 138 mmol/L (136-145) 06/03/25 07:18 Potassium 4.2 mmol/L (3.5-5.1) 06/03/25 07:18 Chloride 103 mmol/L (98-107) 06/03/25 07:18 Carbon Dioxide 31 mmol/L (21-32) 06/03/25 07:18 Anion Gap 4 (3-11) 06/03/25 07:18 BUN 16 mg/dl (6-23) 06/03/25 07:18 Creatinine 0.76 mg/dl (0.6-1.2) 06/03/25 07:18 Est Cr Clr Drug Dosing 73.5 ml/min 06/03/25 07:18 eGFR 84.77 06/03/25 07:18 BUN/Creatinine Ratio 21.1 (10-20) H 06/03/25 07:18 Glucose 101 mg/dl (70-99(Fasting)) H 06/03/25 07:18 Estimat Average Glucose 117 mg/dl 06/03/25 07:18 Hemoglobin A1c 5.7 % (4.5-5.6) H 06/03/25 07:18 Calcium 9.0 mg/dl (8.6-10.3) 06/03/25 07:18 Total Bilirubin 0.2 mg/dl (0.2-1.0) 06/02/25 14:31 AST 13 U/L (13-39) 06/02/25 14:31 ALT 12 U/L (7-52) 06/02/25 14:31 Alkaline Phosphatase 38 U/L (34-104) 06/02/25 14:31 Troponin I High Sens 5.6 pg/ml (0-14) 06/03/25 12:26 Total Protein 6.0 gm/dl (6.0-8.3) 06/02/25 14:31 Albumin 3.4 gm/dl (3.4-5.0) 06/02/25 14:31 Globulin 2.6 gm/dl (2.5-4.0) 06/02/25 14:31 Albumin/Globulin Ratio 1.3 (0.9-2) 06/02/25 14:31 Triglycerides 152 mg/dl (0-150) H 06/03/25 07:18 Cholesterol 180 mg/dl (0-200) 06/03/25 07:18 LDL Cholesterol, Calc 106 mg/dl 06/03/25 07:18 VLDL Cholesterol, Calc 30 mg/dl (0-30) 06/03/25 07:18 HDL Cholesterol 44 mg/dl 06/03/25 07:18 Cholesterol/HDL Ratio 4.1 (0-5) 06/03/25 07:18 Lipase 25 U/L (11-82) 06/02/25 14:31 Vitamin B12 168 pg/ml (180-914) L 06/02/25 14:31 Folate 9.27 ng/ml (>5.38) 06/02/25 14:31 Procalcitonin Cancelled 06/02/25 18:17 Anaplasma Smear See Comment 06/02/25 13:05 Babesia Smear See Comment 06/02/25 13:05 Lyme Disease Screen Cancelled 06/02/25 18:17 SARS-CoV-2 (PCR) NEGATIVE (Negative) 06/03/25 09:20 Influenza Type A (PCR) Negative (Neg) 06/03/25 09:20 Influenza Type B (PCR) Negative (Neg) 06/03/25 09:20 RSV (RT-PCR) Negative (Neg) 06/03/25 09:20 Ref Lab Test Result See Scanned Report 06/02/25 18:17 Impressions Chest X-Ray 06/02/25 13:44 XR chest 1V portable CLINICAL HISTORY: Chest pain, nonspecific COMPARISON STUDY: None FINDINGS: There is mild cardiomegaly without pulmonary vascular congestion. No consolidation or pleural effusion. No pneumothorax. IMPRESSION: No acute findings. ACT 112: Negative or not required by law. Electronically signed by: Franck Waldrop M.D. 06/02/2025 1:55 PM Abdomen/Pelvis CT 06/02/25 14:28 CT SCAN OF THE ABDOMEN AND PELVIS WITH IV CONTRAST CLINICAL HISTORY: Right-sided chest and abdominal pain. COMPARISON STUDY: None. TECHNIQUE: Following the IV administration of 120 cc of Optiray 320, CT scan of the abdomen and pelvis is performed from the lung bases to the proximal femora. Images are reviewed in the axial, sagittal, and coronal planes. IV contrast was administered without complication. A dose lowering technique was utilized adhering to the principles of ALARA. FINDINGS: Mild subpleural alveolar opacities within the right lower lobe are noted. There are minimal alveolar opacities within the left lung base. No pneumatosis, free air or portal venous gas is present. No hepatic lesions are identified. Several small bilateral renal lesions favor cysts. Spleen, adrenal glands and pancreas are unremarkable. There is mild wall thickening the distal stomach with possible minimal perigastric stranding is no extraluminal gas. There is no evidence for a bowel obstruction. There is no evidence for acute appendicitis. Note is made of extensive sigmoid diverticulosis without evidence for acute diverticulitis. Major vasculature is patent. There is no lymphadenopathy. IMPRESSION: 1. Mild wall thickening the distal stomach with possible minimal perigastric stranding. Although likely due to underdistention, the findings could represent gastritis. Abdominal gas. 2. Extensive sigmoid diverticulosis. No evidence for acute diverticulitis. 3. Subpleural right lower lobe opacities suggestive of a mild infectious process. ACT 112: Negative or not required by law. Electronically signed by: Juan Carlos Navarro M.D. 06/02/2025 4:06 PM Chest CTA 06/02/25 14:28 CT angio chest PE protocol CT DOSE: 1452.47 mGy.cm HISTORY: PE, CP to upper abd/back. TECHNIQUE: Multiple CTA images of the chest were obtained after the intravenous administration of 120 ml Optiray. Coronal and sagittal MIPS were obtained from the axial data set and were submitted for review. All measurements were obtained according to NASCET criteria. A dose lowering technique was utilized adhering to the principles of ALARA. COMPARISON STUDY: None FINDINGS: There is a small area of reticular nodular and patchy groundglass opacity lateral right lower lobe. No other pulmonary consolidation or pleural effusion. No pneumothorax. No enlarged adenopathy. No pericardial effusion. No thoracic aortic dissection or aneurysm. No pulmonary embolism. No acute osseous findings. IMPRESSION: 1. No pulmonary embolism seen. 2. Small area of reticular nodular and patchy groundglass opacity lateral right lower lobe has morphology consistent with small area of acute pneumonitis. ACT 112: Negative or not required by law. The above report was generated using voice recognition software. It may contain grammatical, syntax or spelling errors. Electronically signed by: Franck Waldrop M.D. 06/02/2025 3:57 PM Pending Results Patient Have Any Pending Studies at Discharge: Yes Discharge Instructions Given to Patient (Per Discharging Provider) PLEASE REFER TO YOUR NEW MEDICATION LIST AND FOLLOW INSTRUCTIONS CAREFULLY. YOUR NEW MEDICATIONS INCLUDE: Augmentin, Doxycycline - antibiotic for pneumonia Floranex - probiotic to prevent diarrhea from antibiotics also include yogurt in your daily diet Drink plenty of water daily to avoid dehydration. Vitamin B12 supplement - for anemia secondary to vitamin B12 deficiency Stop taking meloxicam as this could be contributing to your gastritis, and also to protect your kidneys from injury since you had received IV contrast dye while admitted. Also do not take medications in advance of NSAIDs including ibuprofen, naproxen, etc. Stop taking famotidine and transition to Protonix which is different class of antacid. Several results of tests ordered for you are still pending including Blood cultures, thyroid hormone level, vitamin D level, tickborne infection panel, etc. Please have your primary care physician obtain complete records from our hospital next week so their office can follow-up on these results. Please make sure that you have a follow-up appointment with your primary care physician next week to ensure continuity of your care. PLEASE CALL YOUR PRIMARY CARE PHYSICIAN OR RETURN TO THE ER IF WITH WORSENING OF SYMPTOMS, INCLUDING weakness, chest pain, shortness of breath, dizziness, fevers chills, etc. FOLLOW UP WITH PRIMARY CARE PHYSICIAN in 1 week. Total Time Total Time Spent Total Time Spent (In Minutes): 60 minutes
[2025-06-03 14:57] LABS: Thyroid Stimulating Hormone 2.59 uIu/ml (0.300-4.500)
[2025-06-03 15:03] LABS: Ferritin 43.5 ng/ml (8-388)
[2025-06-03 15:11] VITALS: PULSE 66
--- NOTE | 2025-06-04 06:36 | Electrocardiogram Report ---
Test Reason : Blood Pressure : */* mmHG Vent. Rate : 75 BPM Atrial Rate : 75 BPM P-R Int : 202 ms QRS Dur : 82 ms QT Int : 408 ms P-R-T Axes : 62 8 49 degrees QTcB Int : 455 ms Normal sinus rhythm Normal ECG No previous ECGs available Confirmed by Kimo Rivero ([id number]) on 06/04/2025 6:36:02 AM Referred By: Confirmed By: Kimo Rivero
--- NOTE | 2025-06-06 11:50 | Coding Query ---
CODING QUERY To promote full compliance with coding requirements relating to patient care, provider participation is requested in all cases of certified medical records coder uncertainty. Please assist us with the question(s) below: Coding Question(s): Please specify below, in your clinical opinion, the most likely cause(s) of chest pain during this admission: ( ) Chest Pain of unknown most likely cause ( ) Chest Pain, most likely due to Gastritis ( x ) Chest Pain most likely due to Other: Please Specify Gastritis, Pneumonia Physician's Response(s): Thank you Sharon Telles Principal Diagnosis: "that condition established after study, to be chiefly responsible for occasioning the admission of the patient to the hospital for care." Co-Existing Principal Diagnosis: "when two or more diagnoses equally meet the criteria for principal diagnosis as determined by the circumstances of admission, diagnostic work up, and/or therapy provided, and the Alphabetic Index, Tabular List, or another coding guideline does not provide sequencing direction, any one of the diagnoses may be sequenced first." "When the physician has documented what appears to be a current diagnosis in the body of the record, but has not included the diagnosis in the final diagnostic statement, the physician should be asked whether the diagnosis should be added." (Source [facility]oding [facility] 2 QTR90. p3-4) LUIS
[2025-06-09 23:08] LABS: Q Fever IgG, Phase I NEGATIVE
== END 2025-06-03 15:35 | disposition home or self-care (01) | DRG 391 ==
LOC: ED 13:32 → INTOOBSV 17:00 → 2N 17:00 → SUATTDRO 17:00 → 2N 17:31